=== PATIENT | female | born 1955 | race Asian ===

== ENCOUNTER 2016-04-19 10:18 | Outpatient (CLI) | payer OTHER | END 2016-04-19 10:19 | disposition home or self-care (01) | DX: Z12.31 Encounter for screening mammogram for malignant neoplasm of breast (principal) ==

== ENCOUNTER 2016-07-10 08:32 | Outpatient (CLI) | payer OTHER ==
--- NOTE | 2016-07-10 12:24 | XRAY Report ---
ACUTE ABDOMEN SERIES: 07/10/2016 CLINICAL INDICATION: Left lower quadrant pain, history of nephrolithiasis. FINDINGS: Supine, upright views of the abdomen and a frontal view of the chest were obtained. The c ardiac silhouette is within normal limits. The lungs are clear. No effusion or pneumothorax is pres ent. There is a large amount of stool throughout the colon to the rectum. No small bowel dilatation is present. No free intraperitoneal gas is seen. No abnormal calcifications are appreciated overly ing either renal shadow or in the expected courses of the ureters. Vascular phleboliths are noted in the pelvis. IMPRESSION: NO EVIDENCE OF BOWEL OBSTRUCTION OR PERFORATION. NO EVIDENT NEPHROLITHIASIS. NO ACUTE CARDIOPULMONARY DISEASE. JOB #: [id number] EXT JOB #:[id number]
== END 2016-07-10 08:33 | disposition home or self-care (01) ==
LOC: DI 08:32
PROVIDERS: ATTEND Family Medicine
DX: R10.32 Left lower quadrant pain (principal)
CPT/HCPCS: 74022

== ENCOUNTER 2016-07-10 10:04 | Outpatient (CLI) | payer OTHER ==
[2016-07-10 10:40] LABS: BASOPHILS # (AUTO) 0.1 10^3/uL (0.0-0.1); BASOPHILS % (AUTO) 1.5 %; EOSINOPHILS # (AUTO) 0.6 10^3/uL (0.0-0.7); EOSINOPHILS % (AUTO) 9.6 %; HCT - HEMATOCRIT 36.6 % (37.0-47.0); HGB - HEMOGLOBIN 12.1 g/dL (12.0-16.0); LYMPHOCYTES # (AUTO) 2.2 10^3/uL (1.5-3.5); LYMPHOCYTES % (AUTO) 35.4 %; MEAN CORPUSCULAR HEMOGLOBIN 26.6 pg (27.0-31.0); MEAN CORPUSCULAR VOLUME 80.5 fL (81.0-99.0); MONOCYTES # (AUTO) 0.3 10^3/uL (0.0-1.0); MONOCYTES % (AUTO) 5.2 %; NEUTROPHILS % (AUTO) 48.3 %; RED BLOOD COUNT 4.55 10^6/uL (4.20-5.40); RED CELL DISTRIBUTION WIDTH 13.8 % (12.0-15.0); UNCORRECTED WHITE BLOOD COUNT 6.2 x10^3/uL; WHITE BLOOD COUNT 6.2 x10^3/uL (4.8-10.8)
[2016-07-10 11:01] LABS: ALBUMIN/GLOBULIN RATIO 1.7 (1.0-2.2); BILIRUBIN,TOTAL 0.8 mg/dL (0.2-1.0); BUN - BLOOD UREA NITROGEN 12 mg/dL (6-20); CALCIUM 9.5 mg/dL (8.5-10.3); CARBON DIOXIDE - CO2 26 mmol/L (21-32); CHLORIDE 101 mmol/L (101-111); CHOL/HDL RATIO 2.5 (<4.4); CHOLESTEROL 174 mg/dL; CREATININE 0.6 mg/dL (0.4-1.0); GFR - MDRD 102 (>89); GLUCOSE 101 mg/dL (70-100); HDL CHOLESTEROL 69 mg/dL; LDL/HDL RATIO 1.4 (<4.4); SODIUM 135 mmol/L (135-145); TOTAL PROTEIN 7.3 g/dL (6.7-8.2); TRIGLYCERIDES 55 mg/dL; VLDL CHOLESTEROL 11 mg/dL
== END 2016-07-10 10:05 | disposition home or self-care (01) ==
LOC: LAB 10:04
PROVIDERS: ATTEND Family Medicine
DX: R10.32 Left lower quadrant pain (principal)
CPT/HCPCS: 36415; 74022; 80053; 80061; 85025

== ENCOUNTER 2016-10-01 22:48 | Emergency (ER) | payer OTHER ==
--- NOTE | 2016-10-01 23:02 | ED Physician Documentation ---
PD HPI UPPER EXT INJURY - Stated complaint Stated Complaint: LT FINGER LAC - History obtained from History obtained from: Patient - History of Present Illness Location: Left, Finger Type of injury: Crush Where injury occurred: Work Timing - onset: How many hours ago (1 hour [employer]OTECTION [employer]IST) Timing - details: Abrupt onset Pain level now: 4 Improved by: Rest, Dressing Worsened by: Moving, Palpating Recently seen: Not recently seen - Additonal information Additional information: patient is right hand dominant. Approximately 1 hour [employer]OTECTION [employer]IST, left fifth finger got caught in a door that closed on it at work. 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 - Present Medications Home Medications: Ambulatory Orders Medication Instructions Recorded Confirmed Aspirin [Sam Chewable Aspirin] 81 mg PO DAILY 07/22/15 07/22/15 Lisinopril 5 mg PO BID 07/22/15 07/22/15 Metformin HCl 1 tab PO BID 07/22/15 07/22/15 Simvastatin 10 mg PO DAILY 07/22/15 07/22/15 amLODIPine [Norvasc] 5 mg PO DAILY #30 tablet 07/22/15 Cephalexin [Keflex] 500 mg PO Q6HR 5 Days 10/02/16 Ibuprofen 600 mg PO Q6HR PRN #20 tablet 10/02/16 - Allergies Allergies/Adverse Reactions: Allergies Allergy/AdvReac Type Severity Reaction Status Date / Time levofloxacin [From Levaquin] Allergy Rash Verified 10/01/16 23:06 hydrocodone AdvReac Emesis Verified 10/01/16 23:06 - Social History Does the pt smoke?: No Smoking Status: Never smoker Does the pt drink ETOH?: No Does the pt have substance abuse?: No PD ED PE NORMAL - Vitals Vital signs reviewed: Yes - General General: Alert and oriented X 3, No acute distress, Well developed/nourished - Neuro Neuro: No motor deficit, No sensory deficit PD ED PE EXPANDED - Extremities MARE UE/Hands Visual: 1 - deformity (skin avulsion. nail is intact and appear uninvolved in injury), tenderness Results - Vitals Vitals: Vital Signs - 24 hr 10/01/16 23:00 Temperature 36.9 C Heart Rate 97 Respiratory 18 Rate Blood Pressure 128/88 H O2 Saturation 97 Oxygen O2 Source Room air - Rads (name of study) left fifth finger xrays Radiology: Prelim report reviewed, See rad report PD MEDICAL DECISION MAKING - ED course Complexity details: reviewed results, re-evaluated patient, considered differential, d/w patient Departure - Departure Disposition: 01 Home, Self Care Clinical Impression: Fingertip avulsion Qualifiers: Encounter type: initial encounter Qualified Code(s): S61.209A - Unspecified open wound of unspecified finger without damage to nail, initial encounter Condition: Good Instructions: ED Laceration Amputation Finger Tip Open Tx Follow-Up: Kar Hughes MD [Provider Admit Priv/Credential] - (Call in the morning to arrange for immediate follow-up) Prescriptions: Ibuprofen 600 mg PO Q6HR PRN #20 tablet PRN Reason: Pain Cephalexin [Keflex] 500 mg PO Q6HR 5 Days Discharge Date/Time: 10/02/16 01:45
[2016-10-01 23:07] VITALS: BP 128/88
[2016-10-01] MEDS ORDERED: IBUPROFEN 600 MG TABLET PO STA (23:11)
[2016-10-01] MEDS ORDERED: IBUPROFEN 600 MG TABLET PO ONE (23:19)
--- NOTE | 2016-10-02 00:14 | XRAY Preliminary Report ---
Exam: XR Finger(s) LT IMPRESSION: 1. 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 Nondisplaced fracture of the left fifth finger distal phalanx tuft. 2. No dislocation. 3. Soft tissue defect in the distal left fifth finger. [facility] SITE ID: [id number]
[2016-10-02] MEDS ORDERED: TRANEXAMIC ACID 1,000 MG/10 ML VIAL NAS STA (00:19)
[2016-10-02] MEDS ORDERED: TRANEXAMIC ACID 1,000 MG/10 ML VIAL ONE (00:25)
--- NOTE | 2016-10-02 00:28 | XRAY Report ---
EXAM: LEFT FIFTH DIGIT RADIOGRAPHY EXAM DATE: 10/01/2016 11:37 PM. CLINICAL HISTORY: Injury. COMPARISON: None. TECHNIQUE: 3 views. FINDINGS: Bones: Partial amputation of the left fifth distal phalanx tuft with associated nondisplaced fracture . Left fifth middle phalanx is hypoplastic. Joints: Normal. No subluxations. Soft Tissues: Soft tissue defect is present in the distal left fifth finger. IMPRESSION: 1. 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 Nondisplaced fracture of the left fifth finger distal phalanx tuft. 2. No dislocation. 3. Soft tissue defect in the distal left fifth finger. [facility] Referring Provider Line: [phone] SITE ID: [id number]
[2016-10-02] MEDS ORDERED: CEPHALEXIN 250 MG CAPSULE PO STA (01:22)
[2016-10-02] MEDS ORDERED: CEPHALEXIN 250 MG CAPSULE PO ONE (01:29)
== END 2016-10-02 01:45 | disposition home or self-care (01) ==
LOC: ED 22:48
DX: S61.217A Laceration without foreign body of left little finger without damage to nail, initial encounter (principal); W23.0XXA Caught, crushed, jammed, or pinched between moving objects, initial encounter; Y99.0 Civilian activity done for income or pay; I10 Essential (primary) hypertension; E11.9 Type 2 diabetes mellitus without complications; Z79.84 Long term (current) use of oral hypoglycemic drugs; Z79.82 Long term (current) use of aspirin
CPT/HCPCS: 73140; 99282; 99283; A9270

== ENCOUNTER 2016-10-02 18:19 | Emergency (ER) | payer OTHER ==
[2016-10-02 18:27] VITALS: BP 147/83
--- NOTE | 2016-10-02 19:23 | ED Physician Documentation ---
PD HPI WOUND RECHECK - Stated complaint Stated Complaint: FINGER LAC - Chief complaint Chief Complaint: General - Histroy obtained from History obtained from: Patient, Family - History of Present Illness Location: Other (L 5th digit) Timing - onset: Last night Pain level max: 4 Pain level now: 3 Associated symptoms: No: Fever, Redness, Swelling Recently seen: Emergency Dept (last night for same) - Additional information Additional information: Patient presents to the emergency department tonight for reevaluation of her left index finger fingertip amputation. States continued bleeding today. 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 - Present Medications Home Medications: Ambulatory Orders Medication Instructions Recorded Confirmed Aspirin [Sam Chewable Aspirin] 81 mg PO DAILY 07/22/15 07/22/15 Lisinopril 5 mg PO BID 07/22/15 07/22/15 Metformin HCl 1 tab PO BID 07/22/15 07/22/15 Simvastatin 10 mg PO DAILY 07/22/15 07/22/15 amLODIPine [Norvasc] 5 mg PO DAILY #30 tablet 07/22/15 Cephalexin [Keflex] 500 mg PO Q6HR 5 Days 10/02/16 Ibuprofen 600 mg PO Q6HR PRN #20 tablet 10/02/16 - Allergies Allergies/Adverse Reactions: Allergies Allergy/AdvReac Type Severity Reaction Status Date / Time levofloxacin [From Levaquin] Allergy Rash Verified 10/02/16 18:28 hydrocodone AdvReac Emesis Verified 10/02/16 18:28 - Social History Does the pt smoke?: No Smoking Status: Never smoker Does the pt drink ETOH?: No Does the pt have substance abuse?: No - Immunizations Immunizations are current?: Yes Immunizations: TDAP current <10years PD ED PE NORMAL - Vitals Vital signs reviewed: Yes - General General: Alert and oriented X 3 - Derm Derm: Warm and dry - Extremities Extremities: Other (Left fifth digit open fingertip amputation. All bony areas are covered with intact flesh. Neurovascularly intact. No bleeding.) - Neuro Neuro: Alert and oriented X 3 Results - Vitals Vitals: Vital Signs - 24 hr 10/02/16 18:22 Temperature 36.5 C Heart Rate 90 Respiratory 20 Rate Blood Pressure 147/83 H O2 Saturation 100 Oxygen O2 Source Room air PD MEDICAL DECISION MAKING - ED course Complexity details: reviewed old records (is currently on abx), considered differential, d/w patient, d/w family ED course: Patient is a 61-year-old [id number] female who presents to the emergency department for a wound check of a left 5th finger tip amputation being treated with secondary intention healing. Prior Gelfoam was removed the wound was inspected, cleaned and new Gelfoam applied along with a dressing and a splint applied over the wound. No bleeding in the emergency department. Warnings of infection and instructions on wound care given at bedside. Also counseled on how to minimize scarring. Patient counseled regarding signs and symptoms for which I believe and urgent re-evaluation would be necessary. Patient with good understanding of and agreement to plan and is comfortable going home at this time This document was made in part using voice recognition software. While efforts are made to proofread this document, sound alike and grammatical errors may occur. Departure - Departure Disposition: 01 Home, Self Care Clinical Impression: Fingertip avulsion Qualifiers: Encounter type: initial encounter Qualified Code(s): S61.209A - Unspecified open wound of unspecified finger without damage to nail, initial encounter Condition: Good Instructions: ED Laceration Amputation Finger Tip Open Tx Follow-Up: Misty Schmidt PA-C [Primary Care Provider] - Within 3 Days (for wound check) Comments: Continue your antibiotics at home. Return if you worsen. Discharge Date/Time: 10/02/16 19:43
--- NOTE | 2016-10-03 15:12 | ED Physician Documentation ---
ED Addendum - Addendum Addendum: 10/03/16 15:11 chart accessed for review, unscheduled return visit to ED within 24 hours of previous discharge
== END 2016-10-02 19:43 | disposition home or self-care (01) ==
LOC: ED 18:19
DX: S61.217A Laceration without foreign body of left little finger without damage to nail, initial encounter (principal); X58.XXXA Exposure to other specified factors, initial encounter; I10 Essential (primary) hypertension; E11.9 Type 2 diabetes mellitus without complications; Z79.84 Long term (current) use of oral hypoglycemic drugs; Z79.82 Long term (current) use of aspirin
CPT/HCPCS: 99283

== ENCOUNTER 2016-10-08 07:12 | Day surgery (SDC) | payer OTHER ==
[2016-10-08] MEDS ORDERED: LACTATED RINGERS 1,000 ML IV ONE (07:35)
[2016-10-08] MEDS ORDERED: MIDAZOLAM 2 MG/2 ML VIAL IVP ONE (08:18)
[2016-10-08] MEDS ORDERED: fentaNYL 100 MCG/2 ML VIAL IVP ONE (08:18)
[2016-10-08 09:20] VITALS: BP 119/80
== END 2016-10-08 07:13 | disposition home or self-care (01) ==
LOC: SDS 07:12
PROVIDERS: ATTEND Surgery
PROC: 0DJD8ZZ Inspection of Lower Intestinal Tract, Via Natural or Artificial Opening Endoscopic (ICD-10-PCS; principal; 2016-10-08 08:15)
DX: Z12.11 Encounter for screening for malignant neoplasm of colon (principal); I10 Essential (primary) hypertension; E11.9 Type 2 diabetes mellitus without complications; Z79.82 Long term (current) use of aspirin
CPT/HCPCS: 45378; J7120